=== PATIENT | female | born 1960 | race Caucasian/White ===

== ENCOUNTER 2019-06-06 12:43 | Emergency (ER) | payer BC ==
--- OUTSIDE RECORDS SUMMARY | 2019-06-06 12:46 | XMS REPORT ---
:1960 Author [facility] Address [address] [place] [address] Care Team Providers Name Role Phone Unavailable Unavailable Unavailable Payers Payer Name Policy Type Policy Number Effective Date Expiration Date Problems This patient has no known problems. Allergies, Adverse Reactions, Alerts Allergy Allergy Status Severity Reaction(s) Onset Inactive Treating Comments Name Type Date Date Clinician No Known DA Active U 2017-03 Allergies 00:00:0 0 Medications This patient has no known medications. Results Test Description Test Time Test Comments Text Results Atomic Results Result Comments B-TYPE NATRIURETIC PEPTIDE 2019-01-18 14:56:00 Test Item Value Reference Range Comments B-TYPE NATRIURETIC PEPTIDE (test code=BNP) 22.8 pg/mL 0-100 BASIC METABOLIC [id number] 14:55:00 Test Item Value Reference Range Comments SODIUM (test code=NA) 143 mmol/L 128-145 POTASSIUM (test code=K) 3.5 mmol/L 3.5-5.1 CHLORIDE (test code=CL) 106.0 mmol/L 98-107 CARBON DIOXIDE (test 29.9 mmol/L 22-29 code=CO2) ANION GAP (test code=GAP) 11 mmol/L 10-20 GLUCOSE (test code=GLU) 88 mg/dL 70-110 BLOOD UREA NITROGEN (test 9 mg/dL 7-22 code=BUN) GLOMERULAR FILTRATION RATE > 60 mL/min >=60 Estimated GFR by using (test code=GFR) Modified MDRD formula.Chronic kidney disease is defined as either kidney damageor GFR <60 mL/min/1.73 m2 for >3 months. CREATININE (test code=CREAT) 0.66 mg/dL 0.55-1.3 BUN/CREATININE RATIO (test 13.6 1020 code=BUN/CREA) CALCIUM (test code=CA) 8.8 mg/dL 8.0-10.5 [id number] 14:55:00 Test Item Value Reference Range Comments TROPONIN-I (test code=TROPI) 0.03 ng/mL 0.00-0.056 BASIC METABOLIC [id number] 14:48:00 Test Item Value Reference Range Comments SODIUM (test code=NA) 143 mmol/L 128-145 POTASSIUM (test code=K) 3.5 mmol/L 3.5-5.1 CHLORIDE (test code=CL) 106.0 mmol/L 98-107 CARBON DIOXIDE (test 29.9 mmol/L 22-29 code=CO2) ANION GAP (test code=GAP) 11 mmol/L 10-20 GLUCOSE (test code=GLU) 88 mg/dL 70-110 BLOOD UREA NITROGEN (test 9 mg/dL 7- code=BUN) GLOMERULAR FILTRATION RATE > 60 mL/min >=60 Estimated GFR by using (test code=GFR) Modified MDRD formula.Chronic kidney disease is defined as either kidney damageor GFR <60 mL/min/1.73 m2 for >3 months. CREATININE (test code=CREAT) 0.66 mg/dL 0.55-1.3 BUN/CREATININE RATIO (test 13.6 20 code=BUN/CREA) CALCIUM (test code=CA) 8.8 mg/dL 8.0-10.5 [id number] 14:48:00 Test Item Value Reference Range Comments TROPONIN-I (test code=TROPI) ng/mL 0-0.045 - XR CHEST 1 [id number] 14:48:00 FAX: Travis Wood [phone] [place]: [place] St: REG Name: THEO CARMONA FSED : 1960 Age/S: 58/F [address] Unit#: [id number] Loc: [facility] [address] Phys: Travis Wood MD [place], [place] [address] Acct: [id number] Dis Date: Status: REG ER PHONE #: Exam Date: 01/18/2019 3856 FAX #: Reason: Shortness of Breath EXAMS: CPT CODE : [id number] XR CHEST 1 V 19562 REASON FOR EXAM: Shortness of Breath EXAM ORDER DATE: 01/18/2019 2: 14 PM Ordering MStephanie: Travis Wood MD PROCEDURE: - XR CHEST 1 V COMPARISON: FINDINGS: Portable AP frontal view of the chest obtained at 2:33 PM shows clear lungs without evidence of consolidation. There is no evidence of effusion. The heart size is within normal limits. Pulmonary vasculatures are unremarkable. IMPRESSION: No active disease. at 5955 Reported and signed by: Artem Maldonado M.D. CC: Travis Wood MD Technologist: Isaías Fisher Trnscrd Date/Time/By: 01/18/2019 ( 0666) : By: AldoL OrigPrint D/T: S: 01/18/2019 (3298) PAGE 1 Signed ReportCBC W/O [id number] 14:42:00 Test Item Value Reference Range Comments WHITE BLOOD CELL (test code=WBC) 3.5 K/mm3 4.5-12.5 RED BLOOD CELL (test code=RBC) 4.17 mill/mm3 3.7-5.2 HEMOGLOBIN (test code=HGB) 11.5 gram/dL 11.5-15.5 HEMATOCRIT (test code=HCT) 37.2 % 36.0-46.0 MEAN CELL VOLUME (test code=MCV) 89.2 fL 80-98 MEAN CELL HGB (test code=MCH) 27.6 picogram 27.0-33.0 MEAN CELL HGB CONCETRATION (test code=MCHC) 30.9 gram/dL 33.0-36.0 RED CELL DISTRIBUTION WIDTH (test code=RDW) 15.1 % 11.6-16.2 RED CELL DISTRIBUTION WIDTH SD (test 48.9 fL 37.0-51.0 code=RDW-SD) PLATELET COUNT (test code=PLT) 129 K/mm3 150-450 MEAN PLATELET VOLUME (test code=MPV) 9.9 fL 6.7-11.0
[2019-06-06] MEDS ORDERED: IPRATROPIUM BROM 0.5MG/2.5ML ONE (13:22)
[2019-06-06] MEDS ORDERED: METHYLPREDNISOLONE 125 MG INJ ONE (13:22)
[2019-06-06] MEDS ORDERED: LEVALBUTEROL 1.25 MG/3 ML NEB ONE (13:22)
[2019-06-06 13:45] LABS: Absolute Lymphocytes (CBC) 1.5 K/uL (0.7-4.9); Basophils % 0.8 % (0-1.3); Hematocrit 37.5 % (36.0-45.0); Lymphocytes % 27.2 % (15.3-44.8); MPV 8.8 fL (7.6-11.3); RBC Red Blood Cell Count 4.38 M/uL (3.86-4.86)
--- NOTE | 2019-06-06 13:48 | RAD REPORT ---
EXAM DESCRIPTION: RAD - Chest Single View - 06/06/2019 1:32 pm CLINICAL HISTORY: Chest pain, progressive shortness of breath COMPARISON: October 2016 TECHNIQUE: AP portable chest image was obtained 1324 hours . FINDINGS: Lungs are clear. Slight increase in density right lung field superimposed on the posterior right ninth rib is believed to be summation artifact. Heart and vasculature are normal. No measurabl e pleural effusion and no pneumothorax. No acute bony abnormality seen. No acute aortic findings susp ected. IMPRESSION: No acute cardiopulmonary process. No suspicious interval change.
[2019-06-06 13:54] LABS: Protime INR 0.99
[2019-06-06] MEDS ORDERED: AZITHROMYCIN IV 500 MG in NA CHLORIDE 0.9% 250 ML IVPB ONE (14:00)
[2019-06-06 14:01] LABS: ALT/SGPT 29 U/L (12-78); AST/SGOT 24 U/L (15-37); Albumin 3.7 g/dL (3.4-5.0); Alkaline Phosphatase 138 U/L (45-117); BUN Blood Urea Nitrogen 13 mg/dL (7-18); Bicarbonate 28 mmol/L (21-32); Bilirubin Direct 0.1 mg/dL (0-0.2); Bilirubin Total 0.4 mg/dL (0.2-1.0); Blood Morphology Comment NOT SEEN (NOT SEEN); CKMB Creatine Kinase MB 1.6 ng/mL (0.3-3.6); Creatine Phosphokinase 61 U/L (26-192); Glucose Level 109 mg/dL (74-106); Lipase 107 U/L (73-393); Magnesium 2.1 mg/dL (1.8-2.4); NT PRO-BNP 42 pg/mL (<125); Platelet Estimate ADEQ; Potassium 4.6 mmol/L (3.5-5.1); Protein, Total 7.5 g/dL (6.4-8.2); Sodium Level 140 mmol/L (136-145); Troponin (Emerg Dept Use Only) < 0.02 ng/mL (0.0-0.045); Urine White Blood Cell Casts OK
[2019-06-06] MEDS ORDERED: NITROGLYCERIN 0.4 MG/TAB SL ONE (14:11)
--- NOTE | 2019-06-06 14:57 | ER ---
Nurse's Notes [facility] Name: Rissa Collazo Age: 58 yrs Sex: Female : 1960 Arrival Date: 06/06/2019 Time: 12:47 Bed 25 Private MD: Diagnosis: Chronic obstructive pulmonary disease with (acute) exacerbation Presentation: 06/06 12:48 Presenting complaint: Patient states: I have been having increasing SOB the last couple la1 weeks from my COPD but worse today. Transition of care: patient was not received from another setting of care. Onset of symptoms. Risk Assessment: Do you want to hurt yourself or someone else? Patient reports no desire to harm self or others. Initial Sepsis Screen: Does the patient meet any 2 criteria? No. Patient's initial sepsis screen is negative. Does the patient have a suspected source of infection? No. Patient's initial sepsis screen is negative. Care prior to arrival: None. 12:48 Method Of Arrival: Ambulatory la1 12:48 Acuity: HOLLI 3 la1 Triage Assessment: 15:00 Respiratory: Onset: The symptoms/episode began/occurred. ca1 15:00 General: Appears. Respiratory: ca1 Historical: - Allergies: 12:49 No Known Allergies; la1 - PMHx: 12:49 Asthma; andrade's esophogous; Hypertension; COPD; la1 - Immunization history:: Adult Immunizations up to date. - Social history:: Smoking status: Patient/guardian denies using tobacco, the patient reports quitting approximately 5 years ago. - Ebola Screening: : No symptoms or risks identified at this time. - Family history:: not pertinent. - Hospitalizations: : No recent hospitalization is reported. Screenin:05 Abuse screen: Denies threats or abuse. Denies injuries from another. Nutritional ca1 screening: No deficits noted. Tuberculosis screening: No symptoms or risk factors identified. Fall Risk IV access (20 points). Assessment: 13:05 General: Appears in no apparent distress. comfortable, Behavior is calm, cooperative, ca1 appropriate for age. Pain: Denies pain. Neuro: Level of Consciousness is awake, alert, obeys commands, Oriented to person, place, time, situation. Cardiovascular: Heart tones S1 S2 present Capillary refill < 3 seconds Patient's skin is warm and dry. Pulses are all present. Rhythm is sinus rhythm. Respiratory: Airway is patent Respiratory effort is even, unlabored, Respiratory pattern is regular, symmetrical, Breath sounds with wheezes bilaterally. Respiratory: Reports shortness of breath on exertion since a week ago cough that is non-productive, since a week ago. GI: Abdomen is round non-distended, Bowel sounds present X 4 quads. Abd is soft and non tender X 4 quads. : No deficits noted. No signs and/or symptoms were reported regarding the genitourinary system. EENT: No deficits noted. No signs and/or symptoms were reported regarding the EENT system. Derm: Skin is intact, is healthy with good turgor, Skin is pink, warm \T\ dry. Musculoskeletal: Circulation, motion, and sensation intact. Capillary refill < 3 seconds, Range of motion: intact in all extremities. 14:00 Reassessment: Patient appears in no apparent distress at this time. Patient and/or ca1 family updated on plan of care and expected duration. Pain level reassessed. Patient is alert, oriented x 3, equal unlabored respirations, skin warm/dry/pink. 15:00 Reassessment: Patient appears in no apparent distress at this time. Patient and/or ca1 family updated on plan of care and expected duration. Pain level reassessed. Patient is alert, oriented x 3, equal unlabored respirations, skin warm/dry/pink. 15:47 Reassessment: Patient appears in no apparent distress at this time. Patient is alert, ca1 oriented x 3, equal unlabored respirations, skin warm/dry/pink. Patient states feeling better. Patient states symptoms have improved. Respiratory: Breath sounds are clear bilaterally. Vital Signs: 12:49 BP 159 / 82; Pulse 92; Resp 18; Temp 97.7; Pulse Ox 97% on R/A; Weight 86.18 kg; Height la1 5 ft. 6 in. (167.64 cm); 14:00 BP 109 / 56; Pulse 80; Resp 20 S; Pulse Ox 96% on R/A; ca1 15:00 BP 140 / 86; Pulse 81; Resp 20 S; Pulse Ox 99% on R/A; ca1 15:40 BP 134 / 81; Pulse 75; Resp 20 S; Pulse Ox 94% on R/A; ca1 12:49 Body Mass Index 30.67 (86.18 kg, 167.64 cm) la1 ED Course: 12:47 Patient arrived in ED. mr 12:49 Triage completed. la1 12:49 Arm band placed on left wrist. la1 12:51 Carie Flores MD is Attending Physician. ma2 13:05 Patient has correct armband on for positive identification. Placed in gown. Bed in low ca1 position. Call light in reach. Side rails up X 1. locomotive observer on. Pulse ox on. NIBP on. Warm blanket given. Head of bed elevated. 13:17 Jayne Gallegos, JUNAID is Primary Nurse. ca1 13:34 No provider procedures requiring assistance completed. Inserted saline lock: 22 gauge ca1 in right antecubital area, using aseptic technique. Blood collected. 13:34 First set of blood cultures drawn by me. ca1 13:48 EKG done, by electronic test technician. reviewed by Carie Flores MD. tc 13:50 Second set of blood cultures drawn by lab staff. ca1 15:49 IV discontinued, intact, bleeding controlled, No redness/swelling at site. Pressure ca1 dressing applied. Administered Medications: 13:20 Drug: Xopenex 1.25 mg Route: Inhalation; ca1 13:20 Drug: AtroVENT Aerosol 0.5 mg Route: Inhalation; ca1 13:40 Drug: SOLU-Medrol 125 mg Route: IVP; Site: right antecubital; ca1 15:30 Follow up: Response: No adverse reaction; Marked relief of symptoms ca1 13:40 Drug: AtroVENT Aerosol 0.5 mg Route: Inhalation; ca1 14:00 Drug: AtroVENT Aerosol 0.5 mg Route: Inhalation; ca1 14:30 Drug: AZITHromycin 500 mg Route: IVPB; Infused Over: 1 hrs; Site: right antecubital; ca1 15:40 Follow up: Response: No adverse reaction; IV Status: Completed infusion ca1 15:46 Follow up: Response: No adverse reaction; IV Status: Completed infusion ca1 Outcome: 14:56 Discharge ordered by . ma2 15:49 Discharged to home ambulatory. ca1 15:49 Condition: stable 15:49 Discharge instructions given to patient, Instructed on discharge instructions, follow up and referral plans. medication usage, Demonstrated understanding of instructions, follow-up care, medications, Prescriptions given X 2. 15:49 Patient left the ED. ca1 Signatures: Ofe Ramos HeatherManda, carbon plant grinder EKG Ttc Josh Montilla RN RN la1 Carie Flores MD MD ma2 Jayne Gallegos RN RN ca1 Corrections: (The following items were deleted from the chart) 15:47 15:45 Reassessment: Patient appears in no apparent distress at this time. Patient ca1 and/or family updated on plan of care and expected duration. Pain level reassessed. Patient is alert, oriented x 3, equal unlabored respirations, skin warm/dry/pink. ca1 22:37 22:36 Respiratory: Onset: The symptoms/episode began/occurred ca1 ca1
--- NOTE | 2019-06-06 14:58 | EDPHYS ---
Physician Documentation [facility] Name: Rissa Collazo Age: 58 yrs Sex: Female : 1960 Arrival Date: 06/06/2019 Time: 12:47 Bed 25 Private MD: ED Physician Carie Flores HPI: 06/06 13:13 This 58 yrs old Female presents to ER via Ambulatory with complaints of ma2 Breathing Difficulty. 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 - Social history:: Smoking status: Patient/guardian denies using tobacco, the patient reports quitting approximately 5 years ago. - Ebola Screening: : No symptoms or risks identified at this time. - Family history:: not pertinent. - Hospitalizations: : No recent hospitalization is reported. ROS: 14:55 Constitutional: Negative for fever, chills, and weight loss. ma2 14:55 All other systems are negative. Exam: 14:55 Constitutional: This is a well developed, well nourished patient who is awake, alert, ma2 and in no acute distress. Chest/axilla: Normal chest wall appearance and motion. Nontender with no deformity. No lesions are appreciated. Cardiovascular: Regular rate and rhythm with a normal S1 and S2. No gallops, murmurs, or rubs. Normal PMI, no JVD. No pulse deficits. Abdomen/GI: Soft, non-tender, with normal bowel sounds. No distension or tympany. No guarding or rebound. No evidence of tenderness throughout. Back: No spinal tenderness. No costovertebral tenderness. Full range of motion. 14:55 Respiratory: mild respiratory distress is noted, Respirations: normal, Breath sounds: wheezing: Respiratory rate: 20 Vital Signs: 12:49 BP 159 / 82; Pulse 92; Resp 18; Temp 97.7; Pulse Ox 97% on R/A; Weight 86.18 kg; Height la1 5 ft. 6 in. (167.64 cm); 14:00 BP 109 / 56; Pulse 80; Resp 20 S; Pulse Ox 96% on R/A; ca1 15:00 BP 140 / 86; Pulse 81; Resp 20 S; Pulse Ox 99% on R/A; ca1 15:40 BP 134 / 81; Pulse 75; Resp 20 S; Pulse Ox 94% on R/A; ca1 12:49 Body Mass Index 30.67 (86.18 kg, 167.64 cm) la1 MDM: 12:52 Patient medically screened. ma2 14:55 Differential diagnosis: Anxiety Reaction asthma, Bronchitis reactive airway disease. ma2 Antibiotic administration: The patient is discharged and will get outpatient antibiotics. Data reviewed: vital signs, nurses notes, diagnostic data from outside facility. Counseling: I had a detailed discussion with the patient and/or guardian regarding: the historical points, exam findings, and any diagnostic results supporting the discharge/admit diagnosis, the presence of at least one elevated blood pressure reading (>120/80) during this emergency department visit, the need for outpatient follow up. Medical screen evaluation completed. EMTALA emergency medical condition absent. 06/06 13:15 Order name: Blood Culture Adult (2) 06/06 13:15 Order name: BMP; Complete Time: 14: al2 06/06 13:15 Order name: CBC with Diff; Complete Time: 14:25 06/06 13:15 Order name: Ckmb; Complete Time: 14:25 06/06 13:15 Order name: CPK; Complete Time: 14:25 06/06 13:15 Order name: D-Dimer; Complete Time: 14:25 06/06 13:15 Order name: Hepatic Function; Complete Time: 14:25 al06/06 13:15 Order name: Lipase; Complete Time: 14:25 al2 06/06 13:15 Order name: Magnesium; Complete Time: 14:25 al2 06/06 13:15 Order name: NT PRO-BNP; Complete Time: 14:25 al2 06/06 13:15 Order name: PT-INR; Complete Time: 14:25 al2 06/06 13:15 Order name: Ptt, Activated; Complete Time: 14:25 al06/06 13:15 Order name: Troponin (emerg Dept Use Only); Complete Time: 14:25 al2 06/06 14:11 Order name: CBC Smear Scan; Complete Time: 14:25 EDMS 06/06 13:15 Order name: XRAY CXR (1 view) 06/06 13:15 Order name: EKG; Complete Time: 13:17 al06/06 13:15 Order name: Cardiac monitoring; Complete Time: 14:37 [facility] 06/06 13:15 Order name: EKG - Nurse/Tech; Complete Time: 14:37 06/06 13:15 Order name: IV Saline Lock; Complete Time: 14:37 [facility] 06/06 13:15 Order name: Labs collected and sent; Complete Time: 14:37 [facility] 06/06 13:15 Order name: O2 Per Protocol; Complete Time: 14:37 06/06 13:15 Order name: O2 Sat Monitoring; Complete Time: 14:37 06/06 15:41 Order name: RAD EDMS Administered Medications: 13:20 Drug: Xopenex 1.25 mg Route: Inhalation; ca1 13:20 Drug: AtroVENT Aerosol 0.5 mg Route: Inhalation; ca1 13:40 Drug: SOLU-Medrol 125 mg Route: IVP; Site: right antecubital; ca1 15:30 Follow up: Response: No adverse reaction; Marked relief of symptoms ca1 13:40 Drug: AtroVENT Aerosol 0.5 mg Route: Inhalation; ca1 14:00 Drug: AtroVENT Aerosol 0.5 mg Route: Inhalation; ca1 14:30 Drug: AZITHromycin 500 mg Route: IVPB; Infused Over: 1 hrs; Site: right antecubital; ca1 15:40 Follow up: Response: No adverse reaction; IV Status: Completed infusion ca1 15:46 Follow up: Response: No adverse reaction; IV Status: Completed infusion ca1 Disposition: 06/06/19 14:56 Discharged to Home. Impression: Chronic obstructive pulmonary disease with (acute) exacerbation. - Condition is Stable. - Discharge Instructions: Chronic Obstructive Pulmonary Disease. - Prescriptions for Zithromax Z- Jaleel 250 mg Oral Tablet - take 1 tablet by ORAL route as directed for 5 days Day 1 - take two (2) tablets one time. Day 2, 3, 4 , 5 take one (1) tablet once daily.; 6 tablet. Medrol (Jaleel) 4 mg Oral Tablets, Dose Pack - take 1 tablet by ORAL route as directed - follow package instructions; 1 packet. - Medication Reconciliation Form, Thank You Letter, Antibiotic Education, Prescription Opioid Use form. - Follow up: Private Physician; When: Tomorrow; Reason: If symptoms return, Continuance of care. Signatures: Dispatcher [employer] Josh Sanchez RN RN la1 Carie Florse MD MD ma2 Jayne Gallegos RN RN ca1 Corrections: (The following items were deleted from the chart) 15:49 14:56 06/06/2019 14:56 Discharged to Home. Impression: Chronic obstructive pulmonary ca1 disease with (acute) exacerbation. Condition is Stable. Forms are Medication Reconciliation Form, Thank You Letter, Antibiotic Education, Prescription Opioid Use. Follow up: Private Physician; When: Tomorrow; Reason: If symptoms return, Continuance of care. ma2
[2019-06-06 15:55] VITALS: TEMP 97.7
[2019-06-06 16:00] VITALS: BP 134/81; O2SAT 94
--- NOTE | 2019-06-06 18:31 | EKG ---
Test Date: 2019-06-06 Test Time: 13:28:51 Structural Design Engineer: GABE MEASUREMENT RESULTS: Intervals: Rate: 78 IA: 160 QRSD: 90 QT: 388 QTc: 442 [place]: P: 56 IA: 160 QRS: 92 T: 61 INTERPRETIVE STATEMENTS: Normal sinus rhythm Rightward axis Borderline ECG Compared to ECG 11/03/2016 19:16:10 Right-axis deviation now present Electronically Signed On 06-06-19 18:29:24 CDT by Raymond Worthington
== END 2019-06-06 15:49 | disposition home or self-care (01) ==
LOC: ER 12:43
DX: J44.1 Chronic obstructive pulmonary disease with (acute) exacerbation (principal)
CPT/HCPCS: 93005; 87040 ×2; 85025; 80048; 36415; 83735; 82550; 85610; 85379; 80076; 85730; 84484; 82553; 83690; 83880; 71045; J0456; J2930; 96365; 96375; 99285

== ENCOUNTER 2019-11-09 10:41 | Emergency (ER) | payer BC ==
--- OUTSIDE RECORDS SUMMARY | 2019-11-09 10:44 | XMS REPORT ---
:1960 [facility] Address [address] [place] [address] Care Team Providers Name Role Phone Unavailable [...] (test code=BNP) 22.8 pg/mL 0-100 BASIC METABOLIC [id number] 14:55:00 Test Item Value Reference Range Comments [...] code=BUN/CREA) CALCIUM (test code=CA) 8.8 mg/dL 8.0-10.5 [id number] 14:55:00 Test Item Value Reference Range Comments TROPONIN-I (test code=TROPI) 0.03 ng/mL 0.00-0.056 BASIC METABOLIC [id number] 14:48:00 Test Item Value Reference Range Comments [...] code=BUN/CREA) CALCIUM (test code=CA) 8.8 mg/dL 8.0-10.5 [id number] 14:48:00 Test Item Value Reference Range Comments TROPONIN-I (test code=TROPI) ng/mL 0-0.045 - XR CHEST 1 [id number] 14:48:00 FAX: Travis Wood [place]: [place] St: REG Name: THEO CARMONA FSED : 1960 Age/S: 58/F [address] Unit[address] [id number] Loc: [facility] [address] Phys: Travis Wood MD [place], [place] [address] Acct: [id number] Dis Date: Status: REG ER PHONE #: Exam Date: 01/18/2019 9486 FAX #: Reason: Shortness of Breath EXAMS: CPT CODE : [id number] XR CHEST 1 V 01587 REASON FOR EXAM: Shortness of Breath EXAM [...] are unremarkable. IMPRESSION: No active disease. at 0986 Reported and signed by: Artem Maldonado M.D. CC: Travis Wood MD Technologist: Isaías Fisher Trnscrd Date/Time/By: 01/18/2019 ( 7821) : By: AldoL OrigPrint D/T: S: 01/18/2019 (2140) PAGE 1 Signed ReportCBC W/O [id number] 14:42:00 Test Item Value Reference Range Comments [...]
[2019-11-09] MEDS ORDERED: predniSONE 20 MG TAB ONE (11:15)
[2019-11-09] MEDS ORDERED: LEVALBUTEROL 1.25 MG/3 ML NEB ONE (11:15)
--- NOTE | 2019-11-09 12:24 | ER ---
Nurse's Notes [facility] Name: Rissa Collazo Age: 59 yrs Sex: Female : 1960 Arrival Date: 11/09/2019 Time: 10:42 Bed 8 Private MD: Diagnosis: Unspecified asthma with (acute) exacerbation Presentation: 11/09 10:57 Presenting complaint: Patient states: hx of asthma/copd, satrted feeling more SOB over iw past couple days, also has dry cough, has been taking albuterol at home. Transition of care: patient was not received from another setting of care. Onset of symptoms was November 07, 2019. Risk Assessment: Do you want to hurt yourself or someone else? Patient reports no desire to harm self or others. Initial Sepsis Screen: Does the patient meet any 2 criteria? No. Patient's initial sepsis screen is negative. Does the patient have a suspected source of infection? No. Patient's initial sepsis screen is negative. Care prior to arrival: None. 10:57 Method Of Arrival: Ambulatory iw 10:57 Acuity: HOLLI 3 iw Historical: - Allergies: 10:59 No Known Allergies; iw - Home Meds: 11:20 Byetta 5 mcg/dose (250 mcg/mL) 1.2 mL subcutaneous pnij 2 times per day [Active]; iw losartan 100 mg oral tab 1 tab once daily [Active]; bupropion HCl 150 mg Oral TbER 1 tab once daily [Active]; duloxetine 60 mg oral cpDR 2 caps once daily [Active]; pantoprazole 40 mg oral TbEC 1 tab once daily [Active]; montelukast 10 mg oral tab 1 tab once daily [Active]; Claritin 10 mg Oral tab 1 tab once daily [Active]; lorazepam 1 mg Oral tab every 6 hours [Active]; Ambien 10 mg Oral tab 1 tab once daily [Active]; ProAir HFA 90 mcg/actuation inhalation HFAA [Active]; trelegy inhaler [Active]; - 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 - Coronavirus screen:: The patient has NOT traveled to [place] in the past 14 days. Proceed with normal triage process as indicated. - Social history:: Smoking status: Patient/guardian denies using tobacco, the patient reports quitting approximately 4 years ago. - Ebola Screening: : Patient negative for fever greater than or equal to 101.5 degrees Fahrenheit, and additional compatible Ebola Virus Disease symptoms Patient denies exposure to infectious person Patient denies travel to an Ebola-affected area in the 21 days before illness onset No symptoms or risks identified at this time. Screenin:51 Abuse screen: Denies threats or abuse. Denies injuries from another. Nutritional ph screening: No deficits noted. Tuberculosis screening: No symptoms or risk factors identified. Fall Risk None identified. Assessment: 11:50 General: Appears in no apparent distress. comfortable, well groomed, Behavior is calm, ph cooperative, appropriate for age, Denies fever. Pain: Denies pain. Neuro: Level of Consciousness is awake, alert, obeys commands, Oriented to person, place, time, situation. Cardiovascular: Capillary refill < 3 seconds in bilateral fingers Patient's skin is warm and dry. Respiratory: Reports shortness of breath cough that is dry, Airway is patent Respiratory effort is even, unlabored, Respiratory pattern is regular, symmetrical, Breath sounds with wheezes bilaterally. Denies pain with respiration, pain with cough. GI: No signs and/or symptoms were reported involving the gastrointestinal system. Derm: Skin is intact, is healthy with good turgor, Skin is pink, warm \T\ dry. Musculoskeletal: Circulation, motion, and sensation intact. Range of motion: intact in all extremities. 12:08 Reassessment: Patient appears in no apparent distress at this time. Patient and/or rb1 family updated on plan of care and expected duration. Pain level reassessed. Patient is alert, oriented x 3, equal unlabored respirations, skin warm/dry/pink. Patient states symptoms have improved. Vital Signs: 10:59 BP 153 / 102; Pulse 88; Resp 20 S; Temp 97.0; Pulse Ox 98% on R/A; Weight 90.72 kg; iw Height 5 ft. 6 in. (167.64 cm); Pain 0/10; 11:59 BP 129 / 60; Pulse 83; Resp 20; Pulse Ox 96% on R/A; rb1 12:51 BP 117 / 71; Pulse 87; Resp 18; Temp 97.4; Pulse Ox 98% on R/A; ph 10:59 Body Mass Index 32.28 (90.72 kg, 167.64 cm) ED Course: 10:42 Patient arrived in ED. as 10:50 Mike Sequeira PA is PHCP. [facility] 10:50 Carmine Thomas MD is Attending Physician. [facility] 10:58 Triage completed. iw 10:59 Arm band placed on. iw 11:09 Magdalena Cassidy, RN is Primary Nurse. ph 11:51 Patient has correct armband on for positive identification. Bed in low position. Call ph light in reach. Side rails up X 1. Pulse ox on. NIBP on. 12:51 No provider procedures requiring assistance completed. Patient did not have IV access ph during this emergency room visit. Administered Medications: 11:15 Drug: predniSONE 60 mg Route: PO; ph 12:53 Follow up: Response: No adverse reaction ph 11:15 Drug: Xopenex (3) 1.25 mg Route: Inhalation; ph 12:52 Follow up: Response: No adverse reaction ph Outcome: 12:23 Discharge ordered by MD. m 12:51 Discharged to home ambulatory. ph 12:51 Condition: improved 12:51 Discharge instructions given to patient, Instructed on discharge instructions, follow up and referral plans. medication usage, Demonstrated understanding of instructions, follow-up care, Prescriptions given X 2. 12:53 Patient left the ED. ph Signatures: Mike Sequeira PA PA jmm Martinez, Amelia as Marija Gonzalez, JUNAID QUIROGA Magdalena Cassidy RN RN Zahra Pineda, RN RN rb1 Corrections: (The following items were deleted from the chart) 11:00 10:57 Acuity: HOLLI 4 iw
--- NOTE | 2019-11-09 12:25 | EDPHYS ---
Physician Documentation [facility] Name: Rissa Collazo Age: 59 yrs Sex: Female : 1960 Arrival Date: 11/09/2019 Time: 10:42 Bed 8 Private MD: ED Physician Carmine Thomas HPI: 11/09 11:08 This 59 yrs old Female presents to ER via Ambulatory with complaints of jmm Asthma Exacerbation. 11:08 The patient presents to the emergency department with wheezing, Current therapy: jmm albuterol inhaler. Onset: The symptoms/episode began/occurred gradually, 2 day(s) ago. Modifying factors: The symptoms are alleviated by inhaler, the symptoms are aggravated by. Associated signs and symptoms: Pertinent negatives: chest pain, fever, vomiting. This is a 59 year old female with a history of asthma that presents to the ED with complaints of cough, wheezing, shortness of breath worsening over the past 2 days. Patient states she did not take her prescribed inhaled steroids this past month which may have exacerbated her SOB. Patient has not had an exacerbations in the past year and has never been intubated. . Historical: - Allergies: 10:59 No Known Allergies; iw - Home Meds: 11:20 Byetta 5 mcg/dose (250 mcg/mL) 1.2 mL subcutaneous pnij 2 times per day [Active]; iw losartan 100 mg oral tab 1 tab once daily [Active]; bupropion HCl 150 mg Oral TbER 1 tab once daily [Active]; duloxetine 60 mg oral cpDR 2 caps once daily [Active]; pantoprazole 40 mg oral TbEC 1 tab once daily [Active]; montelukast 10 mg oral tab 1 tab once daily [Active]; Claritin 10 mg Oral tab 1 tab once daily [Active]; lorazepam 1 mg Oral tab every 6 hours [Active]; Ambien 10 mg Oral tab 1 tab once daily [Active]; ProAir HFA 90 mcg/actuation inhalation HFAA [Active]; trelegy inhaler [Active]; - 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 - Coronavirus screen:: The patient has NOT traveled to [place] in the past 14 days. Proceed with normal triage process as indicated. - Social history:: Smoking status: Patient/guardian denies using tobacco, the patient reports quitting approximately 4 years ago. - Ebola Screening: : Patient negative for fever greater than or equal to 101.5 degrees Fahrenheit, and additional compatible Ebola Virus Disease symptoms Patient denies exposure to infectious person Patient denies travel to an Ebola-affected area in the 21 days before illness onset No symptoms or risks identified at this time. ROS: 11:08 Constitutional: Negative for fever, chills, and weight loss, Cardiovascular: Negative jmm for chest pain, palpitations, and edema. 11:08 Abdomen/GI: Negative for abdominal pain, nausea, vomiting, diarrhea, and constipation. 11:08 Respiratory: Positive for cough, wheezing. 11:08 All other systems are negative. Exam: 11:08 Constitutional: This is a well developed, well nourished patient who is awake, alert, jmm and in no acute distress. Head/Face: atraumatic. Eyes: EOMI, no conjunctival erythema appreciated ENT: Moist Mucus Membranes Neck: Trachea midline, Supple Chest/axilla: Normal chest wall appearance and motion. Cardiovascular: Regular rate and rhythm. No edema appreciated 11:08 Abdomen/GI: Non distended, soft Back: Normal ROM Skin: General appearance color normal MS/ Extremity: Moves all extremities, no obvious deformities appreciated, no edema noted to the lower extremities Neuro: Awake and alert, normal gait Psych: Behavior is normal, Mood is normal, Patient is cooperative and pleasant 11:08 Respiratory: the patient does not display signs of respiratory distress, Respirations: normal, Breath sounds: wheezing: that is moderate, is heard diffusely. Vital Signs: 10:59 BP 153 / 102; Pulse 88; Resp 20 S; Temp 97.0; Pulse Ox 98% on R/A; Weight 90.72 kg; iw Height 5 ft. 6 in. (167.64 cm); Pain 0/10; 11:59 BP 129 / 60; Pulse 83; Resp 20; Pulse Ox 96% on R/A; rb1 12:51 BP 117 / 71; Pulse 87; Resp 18; Temp 97.4; Pulse Ox 98% on R/A; ph 10:59 Body Mass Index 32.28 (90.72 kg, 167.64 cm) iw MDM: 10:54 Patient medically screened. [facility] 12:20 Data reviewed: vital signs, nurses notes. [facility] 12:21 Counseling: I had a detailed discussion with the patient and/or guardian regarding: the [facility] historical points, exam findings, and any diagnostic results supporting the discharge/admit diagnosis, the need for outpatient follow up, to return to the emergency department if symptoms worsen or persist or if there are any questions or concerns that arise at home. ED course: Improved breath sounds on reexamination. Slight wheezing appreciated. No signs of resp distress appreciated. Patient advised to follow up with pcp and otherwise given strict return precautions. Patient understood and agrees with the plan of care. . Administered Medications: 11:15 Drug: predniSONE 60 mg Route: PO; ph 12:53 Follow up: Response: No adverse reaction ph 11:15 Drug: Xopenex (3) 1.25 mg Route: Inhalation; ph 12:52 Follow up: Response: No adverse reaction ph Disposition: 14:33 Co-signature as Attending Physician, Carmine Thomas MD I agree with the assessment and kdr plan of care. Disposition: 11/09/19 12:23 Discharged to Home. Impression: Unspecified asthma with (acute) exacerbation. - Condition is Stable. - Discharge Instructions: Asthma, Adult. - Prescriptions for Prednisone 20 mg Oral Tablet - take 3 tablet by ORAL route once daily for 5 days; 15 tablet. Albuterol Sulfate 90 mcg/actuation - inhale 1-2 puff by INHALATION route every 4-6 hours; 1 Inhaler. - Medication Reconciliation Form, Thank You Letter, Antibiotic Education, Prescription Opioid Use form. - Follow up: Private Physician; When: 2 - 3 days; Reason: Recheck today's complaints, Continuance of care, Re-evaluation by your physician. Signatures: Carmine Thomas MD MD kdr Mickail, Joel, PA PA [facility] Marija Gonzalez, JUNAID RN iw Magdalena Cassdiy RN RN ph Corrections: (The following items were deleted from the chart) 12:53 12:23 11/09/2019 12:23 Discharged to Home. Impression: Unspecified asthma with (acute) ph exacerbation. Condition is Stable. Forms are Medication Reconciliation Form, Thank You Letter, Antibiotic Education, Prescription Opioid Use. Follow up: Private Physician; When: 2 - 3 days; Reason: Recheck today's complaints, Continuance of care, Re-evaluation by your physician. david
[2019-11-10 07:50] VITALS: BP 117/71; TEMP 97.4; O2SAT 98
== END 2019-11-09 12:53 | disposition home or self-care (01) ==
LOC: ER 10:41
DX: J45.901 Unspecified asthma with (acute) exacerbation (principal); I10 Essential (primary) hypertension
CPT/HCPCS: 99284; J7512

== ENCOUNTER 2021-02-15 11:10 | Emergency (ER) | payer BC ==
--- OUTSIDE RECORDS SUMMARY | 2021-02-15 11:14 | XMS REPORT | Continuity of Care Document ---
:1960 Author Organization [facility] t Address [address] [place] [address] Care Team Providers Name Role Phone Myra Boyd MD Primary Care Physician [phone] Lela Attending Clinician Joo Flores DO Attending Clinician Christie APODACA Attending Clinician Shana Dean CMA Attending Clinician Unavailable Payers Payer Name Policy Type Policy Number Effective Date Expiration Date S ource Problems Condition Condition Condition Status Onset Resolution Last Treating Co mments Source Name Details Category Date Date Treatment Clinician Date Anxiety Anxiety Disease [facility] 00 [place] Essential Essential Disease Active [facility] hypertensi hypertensi 12 Dee kes - on on 00:00: Medical 00 Center Other Other Disease Active [facility] insomnia insomnia 05-08 [facility] 00 [place] COPD COPD Disease Active 2018- [facility] ([facility]ronic ([facility] - obstructiv obstructiv 00:00: Me dical e e 00 Center pulmonary pulmonary disease) disease) Osteoarthr Osteoarthr Disease Active [facility] itis itis 8 [facility] - 00:[facility]: Medical 00 [place] Impaired Impaired Disease Active 2018-0 [facility] fasting fasting 8 [facility] - glucose glucose 00:00: Medical 00 [place] Iron Iron Disease Active [facility] deficiency deficiency 05-08 [facility] - anemia anemia 00:00: Medical [address] [place] [address] GERD GERD Disease Active [facility] without without 05-08 [facility] - esophagiti esophagiti 00:00: Me dical s s 00 [place] Hypertensi Hypertensi Disease Active [facility] on on [facility] Allergies, Adverse Reactions, Alerts Allergy Allergy Status Severity Reaction(s) Onset Inactive Treating Comm ents Source Name Type Date Date Clinician No Known DA Active [facility] Allergie 03-30 Clear s 00:00: Rios [address] [facility] Family History Family Member Diagnosis Comments Start Date Stop Date Source Natural father Hypertension [facility] Natural father Stroke [facility] Maternal grandfather Diabetes [facility] Maternal grandfather Hypertension [facility] Maternal grandmother Diabetes [facility] Maternal grandmother Hypertension [facility] Natural mother Hypertension [facility] Social History Social Habit Start Date Stop Date Quantity Comments Source History of tobacco Current smoker [facility] use [facility] History SDOH [facility] - Alcohol Std Drinks [facility] History SDOH [facility] - Alcohol Binge Medical [facility]anna ter Sex Assigned [facility] Cigarettes smoked 2020-02-07 2020-02-07 [facility] - current (pack per 00:00:00 00:00:00 [facility] Center day) - Reported Tobacco use and 2020-02-07 2020-02-07 Never used [facility] - exposure 00:00:00 00:00:00 [facility] Alcohol intake 2020-02-07 2020-02-07 Current [facility] - 00:00:00 00:00:00 non-drinker of Medical Ce nter alcohol (finding) History SDOH 2019-02-17 2019-02-17 1 [facility] - Alcohol Frequency 00:00:00 00:00:00 [facility] Smoking Status Start Date Stop Date Source Former smoker 2020-02-07 00:00:00 2020-02-07 00:00:00 [facility] Medications Ordered Filled Start Stop Current Ordering Indication Dosage Frequency Signature Comments Components Source Medication Medication Date Date Medication? Clinician (SIG) Name Name fluticasone 0 Yes 1{puff} Inhale [address] [facility] [address] propion-young 5-13 puff by [facility] - meterol 15:27: mouth via Medic al (ADVAIR) 19 inhaler Center 250-50 every 12 mcg/dose (twelve) diskus hours. inhaler LORazepam Yes 1mg Take [address] [facility] [address] (ATIVAN) 1 5-13 by mouth [facility] - MG tablet 15:27: every 6 Medic al 19 (six) Center hours as needed for Anxiety. benzonatate 0 Yes Chronic 100mg Take [address] [facility] (TESSALON) 5-13 obstructive capsule [facility] - 100 MG 00:00: pulmonary (100 mg Med ical capsule 00 disease, total) by Vanna ter unspecified mouth 3 COPD type (three) ([facility]) times daily as needed FOR COUGH. albuterol 0 Yes One vial [facility] (PROVENTIL) 5-13 qid prn [facility] - 2.5 mg /3 00:00: sob. Medical mL (0.083 00 Center %) nebulizer solution PROAIR HFA 0 Yes Inhale [address] [facility] [facility] 90 5-13 puff every [facility] - mcg/actuati 00:00: 4-6 hours M edical on inhaler 00 as needed Cent er for wheezing. miscellaneo 2019-[address] medical 4-05 NEBULIZER Luke [facility] - supply Misc 00:00: DX ASTHMA. Medical 00 [place] buPROPion 2018-09 Yes Anxiety 150mg QD Take [address] (WELLBUTRIN 2-09 tablet [facility] - XL) 150 MG 00:00: (150 mg Medi anthony 24 hr 00 total) by Center tablet mouth daily. BYSTOLIC 5 2018-09 Yes Essential Two po in [facility] mg tablet 2-09 hypertensio am and L ukes - 00:00: n One po Medical 00 qpm. [place] loratadine 2018-09 Yes 10mg QD Take 1 [facility] (CLARITIN) 2-09 tablet (10 Jean es - 10 mg 00:00: mg total) Medical tablet 00 by mouth Center daily. zolpidem 2018-09 Yes Other 10mg QD Take [address] (AMBIEN) 10 2-09 insomnia tablet (10 [facility] - mg tablet 00:00: mg total) Med ical 00 by mouth Center nightly. Max Daily Amount: 10 mg fluticasone 2018-09 Yes Chronic 1{puff} QD Inhale [address] -umeclidin- 11-05 obstructive puff by [facility] - vilanter 00:00: pulmonary mouth via Medical (TRELEGY 00 disease, inhaler Cent er ELLIPTA) unspecified daily. 100-62.5-25 COPD type mcg DsDv (HCC) levalbutero 2018-09- No Chronic 1.25mg Take [address] l (XOPENEX) 11-05 obstructive (1.25 mg [facility] - 1.25 mg/3 00:00: 23:59 pulmonary total) by Medical mL 00 :00 disease, nebulizati Cente r nebulizer unspecified on every 4 solution COPD type (four) ([facility]) hours as needed for Wheezing # 100 vials. losartan 2018-09- No Essential 100mg QD Take [address] (COZAAR) 11-05 hypertensio tablet L ukes - 100 MG 00:00: 23:59 n (100 mg Medical tablet 00 :00 total) by Center mouth daily Stop the 50mg. PROAIR Yes 2{puff} Take [address] RESPICLICK 9-11 puffs by [facility] - 90 00:00: mouth Medical mcg/actuati 00 every 4 Cente r on AePB (four) hours as needed. pantoprazol Yes 40mg QD Take [address] e 4-22 by mouth [facility] - (PROTONIX) 00:00: daily. Medic al 40 MG 00 Center tablet montelukast Yes 10mg QD Take [address] (SINGULAIR) 4-05 by mouth Luke s - 10 mg 00:00: daily. Medical tablet 00 Center DULoxetine Yes 120mg QD Take [address] (CYMBALTA) 4-02 mg by [facility] - 60 MG 00:00: mouth Medical capsule 00 every Center morning. Procedures This patient has no known procedures. Plan of Care Planned Activity Planned Date Details Comments Source Future Scheduled 2022-09-[address] [facility] - Test 00:00:00 (procedure) [code = [facility] 44753773] Future Scheduled 2020-05-28 INFLUENZA VACCINE (#1) [facility] - Test 00:00:00 [code = INFLUENZA Medical Ce nter VACCINE (#1)] Future Scheduled 2019-08-[address] [facility] - Test 00:00:[facility] breast (procedure) [code = 784359690] Future Scheduled [address] [facility] - Test 00:00:00 [facility] cervix (procedure) [code = 373166316] Future Scheduled [address] [facility] - Test 00:00:00 0-64 YRS (1 of 1 - Medical C enter PPSV23) [code = PNEUMOCOCCAL VACCINE 0-64 YRS (1 of 1 - PPSV23)] Future Scheduled [address] [facility] - Test 00:00:00 malignant neoplasm of [facility] colon (procedure) [code = 508232341] Encounters Start End Encounter Admission Attending Care Care Encounter Source Date/Time Date/Time Type Type Clinicians Facility Department ID 2021-01-23 2021-01-23 [facility] [id number] 00:00:00 00:00:00 [facility] [id number] CLINICS [id number] 2020-12-04 2020-12-04 [facility] [id number] 00:00:00 [facility]00[id number] [facility]oo [facility] [id number] PAVILLION [id number] 2020-11-19 2020-11-19 Office Christie [facility] [id number] 14:43:49 15:13:49 Visit Jack PRIMARY [id number] CARE [id number] PAVILLION [id number] Results Test Description Test Time Test Comments Results Result Comments Source BASIC METABOLIC PANEL 2020-02-20 07:47:00 Test Item Value Reference Range Interpretation Comme nts SODIUM (test code = NA) 137 mmol/L 134-147 N POTASSIUM (test code = K) 4.0 mmol/L 3.4-5.0 N CHLORIDE (test code = CL) 103 mmol/L 100-108 N CARBON DIOXIDE (test code = CO2) 28 mmol/L 21-32 N ANION GAP (test code = GAP) 6.0 GAP calc 4.0-15.0 N GLUCOSE (test code = GLU) 126 MG/DL 70-110 H BLOOD UREA NITROGEN (test code = BUN) 18 MG/DL 7-18 N GLOMERULAR FILTRATION RATE (test code = GFR) >=60 max estimate estG FR >60 CREATININE (test code = CREAT) 0.8 MG/DL 0.6-1.0 N CALCIUM (test code = CA) 8.7 MG/DL 8.5-10.1 N CBC W/AUTO [id number] 07:31:00 Test Item Value Reference Range Interpretation Comments WHITE BLOOD CELL (test code = 5.3 K/mm3 3.5-11.0 N WBC) RED BLOOD CELL (test code = RBC) 4.44 M/mm3 4.70-6.10 L HEMOGLOBIN (test code = HGB) 12.2 G/DL 10.4-14.9 N HEMATOCRIT (test code = HCT) 40.1 % 31.5-44.1 N MEAN CELL VOLUME (test code = 90.3 Fl 84.5-98.6 N MCV) MEAN CELL HGB (test code = MCH) 27.5 pg 27.0-34.2 N MEAN CELL HGB CONCETRATION (test 30.4 G/DL 31.5-34.0 L code = MCHC) RED CELL DISTRIBUTION WIDTH (test 16.4 SD 11.5-14.5 H code = RDW) PLATELET COUNT (test code = PLT) 230.0 K/mm3 150-450 N MEAN PLATELET VOLUME (test code = 10.30 fL 7.0-10.5 N MPV) NEUTROPHIL % (test code = NT%) 72.2 % 40-76 N LYMPHOCYTE % (test code = LY%) 21.1 % 20.5-51.1 N MONOCYTE % (test code = MO%) 6.3 % 1.7-9.3 N EOSINOPHIL % (test code = EO%) 0.0 % 0.0-6.0 N BASOPHIL % (test code = BA%) 0.4 % 0.0-2.0 N NEUTROPHIL # (test code = NT#) 3.81 K/mm3 1.8-7.6 N LYMPHOCYTE # (test code = LY#) 1.1 K/mm3 0.6-3.2 N MONOCYTE # (test code = MO#) 0.3 K/mm3 0.3-1.1 N EOSINOPHIL # (test code = EO#) 0.0 K/mm3 0.0-0.4 N BASOPHIL # (test code = BA#) 0.0 K/mm3 0.0-0.1 N MANUAL DIFF REQUIRED (test code = NO DIFF/SCN CRITERIA MDIFF) BASIC METABOLIC [id number] 05:23:00 Test Item Value Reference Range Interpretation Comments SODIUM (test code = NA) 138 mmol/L 134-147 N POTASSIUM (test code = 4.1 mmol/L 3.4-5.0 N K) CHLORIDE (test code = 102 mmol/L 100-108 N CL) CARBON DIOXIDE (test 31 mmol/L 21-32 N code = CO2) ANION GAP (test code = 5.0 GAP calc 4.0-15.0 N GAP) GLUCOSE (test code = 131 MG/DL 70-110 H GLU) BLOOD UREA NITROGEN 16 MG/DL 7-18 N (test code = BUN) GLOMERULAR FILTRATION >=60 max estimate >60 RATE (test code = GFR) estGFR CREATININE (test code = 0.8 MG/DL 0.6-1.0 N CREAT) CALCIUM (test code = CA) 8.5 MG/DL 8.5-10.1 N CBC W/AUTO [id number] 05:20:00 Test Item Value Reference Range Interpretation Comments WHITE BLOOD CELL (test code = 5.9 K/mm3 3.5-11.0 N WBC) RED BLOOD CELL (test code = RBC) 4.04 M/mm3 4.70-6.10 L HEMOGLOBIN (test code = HGB) 10.9 G/DL 10.4-14.9 N HEMATOCRIT (test code = HCT) 36.9 % 31.5-44.1 N MEAN CELL VOLUME (test code = 91.3 Fl 84.5-98.6 N MCV) MEAN CELL HGB (test code = MCH) 27.0 pg 27.0-34.2 N MEAN CELL HGB CONCETRATION (test 29.5 G/DL 31.5-34.0 L code = MCHC) RED CELL DISTRIBUTION WIDTH (test 16.1 SD 11.5-14.5 H code = RDW) PLATELET COUNT (test code = PLT) 198.0 K/mm3 150-450 N MEAN PLATELET VOLUME (test code = 10.20 fL 7.0-10.5 N MPV) NEUTROPHIL % (test code = NT%) 78.9 % 40-76 H LYMPHOCYTE % (test code = LY%) 17.9 % 20.5-51.1 L MONOCYTE % (test code = MO%) 3.0 % 1.7-9.3 N EOSINOPHIL % (test code = EO%) 0.0 % 0.0-6.0 N BASOPHIL % (test code = BA%) 0.2 % 0.0-2.0 N NEUTROPHIL # (test code = NT#) 4.66 K/mm3 1.8-7.6 N LYMPHOCYTE # (test code = LY#) 1.1 K/mm3 0.6-3.2 N MONOCYTE # (test code = MO#) 0.2 K/mm3 0.3-1.1 L EOSINOPHIL # (test code = EO#) 0.0 K/mm3 0.0-0.4 N BASOPHIL # (test code = BA#) 0.0 K/mm3 0.0-0.1 N MANUAL DIFF REQUIRED (test code = NO DIFF/SCN CRITERIA MDIFF) Novel Coronavirus [id number] 00:04:00 Test Item Value Reference Range Interpretation Comments Novel Coronavirus Negative Negative Positive r esults are 2019 Inhouse (test indicativ e of the presence code = [id number]) ofSARS-CoV -2 RNA, clinical correlation wit h patient historyand othe r diagnostic info rmation is necessary to determinepatien t infection status. Positiv e results do not rule out bacterial infection or co -infection with other viru ses. Negative result s do not preclude SARS-C oV-2 infection andsh ould not be used as the demarco e basis for patient managementdecis ions. Negative result s must be combined with otherclinical observations, p atient history, and epidemiological information . Detection of SARS-CoV-2 RNA may be affe cted bysample collec tion methods, storag e conditions, and /or stageof infection. Marnie l RNA mutations, vacc inations, antiviraltherap eutics, antibiotics, chemotherapeuti c orimmunosuppres naresh drugs have not been e valuated for effectson d etection. Results are for the identification of SARS-CoV-2 RNA usingthe [employer] M2000 Sy stem under the [facility] Emergen cy UseAuthorizatio n. The testing is perf ormed by personneltraine d in the procedures for the [employer] M2000 molecular diagnostic SARS-CoV-2 assa y in vitro. Testing Criteria: Cough Shortness of BreathNovel Coronavirus 2019 2020-02-19 00:04:00 Test Item Value Reference Range Interpretation Comments Novel Coronavirus Negative Negative Positive r esults are 2019 Inhouse (test indicativ e of the presence code = [id number]) ofSARS-CoV -2 RNA, clinical correlation wit h patient historyand othe r diagnostic info rmation is necessary to determinepatien t infection status. Positiv e results do not rule out bacterial infection or co -infection with other viru ses. Negative result s do not preclude SARS-C oV-2 infection andsh ould not be used as the demarco e basis for patient managementdecis ions. Negative result s must be combined with otherclinical observations, p atient history, and epidemiological information . Detection of SARS-CoV-2 RNA may be affe cted bysample collec tion methods, storag e conditions, and /or stageof infection. Marnie l RNA mutations, vacc inations, antiviraltherap eutics, antibiotics, chemotherapeuti c orimmunosuppres naresh drugs have not been e valuated for effectson d etection. Results are for the identification of SARS-CoV-2 RNA usingthe [employer] M2000 Sy stem under the FDA Emergen cy UseAuthorizatio n. The testing is perf ormed by personneltraine d in the procedures for the [employer] M2000 molecular diagnostic SARS-CoV-2 assa y in vitro. Testing Criteria: Cough Shortness of BreathCBC W/AUTO [id number] 06:45:00 Test Item Value Reference Range Interpretation Comments WHITE BLOOD CELL (test code = 7.6 K/mm3 3.5-11.0 N WBC) RED BLOOD CELL (test code = RBC) 3.78 M/mm3 4.70-6.10 L HEMOGLOBIN (test code = HGB) 10.3 G/DL 10.4-14.9 L HEMATOCRIT (test code = HCT) 34.7 % 31.5-44.1 N MEAN CELL VOLUME (test code = 91.8 Fl 84.5-98.6 N MCV) MEAN CELL HGB (test code = MCH) 27.2 pg 27.0-34.2 N MEAN CELL HGB CONCETRATION (test 29.7 G/DL 31.5-34.0 L code = MCHC) RED CELL DISTRIBUTION WIDTH (test 16.4 SD 11.5-14.5 H code = RDW) PLATELET COUNT (test code = PLT) 207.0 K/mm3 150-450 N MEAN PLATELET VOLUME (test code = 10.50 fL 7.0-10.5 N MPV) NEUTROPHIL % (test code = NT%) 81.2 % 40-76 H LYMPHOCYTE % (test code = LY%) 13.1 % 20.5-51.1 L MONOCYTE % (test code = MO%) 5.6 % 1.7-9.3 N EOSINOPHIL % (test code = EO%) 0.0 % 0.0-6.0 N BASOPHIL % (test code = BA%) 0.1 % 0.0-2.0 N NEUTROPHIL # (test code = NT#) 6.14 K/mm3 1.8-7.6 N LYMPHOCYTE # (test code = LY#) 1.0 K/mm3 0.6-3.2 N MONOCYTE # (test code = MO#) 0.4 K/mm3 0.3-1.1 N EOSINOPHIL # (test code = EO#) 0.0 K/mm3 0.0-0.4 N BASOPHIL # (test code = BA#) 0.0 K/mm3 0.0-0.1 N MANUAL DIFF REQUIRED (test code = NO DIFF/SCN CRITERIA MDIFF) BASIC METABOLIC [id number] 06:22:00 Test Item Value Reference Range Interpretation Comments SODIUM (test code = NA) 141 mmol/L 134-147 N POTASSIUM (test code = 4.0 mmol/L 3.4-5.0 N K) CHLORIDE (test code = 105 mmol/L 100-108 N CL) CARBON DIOXIDE (test 28 mmol/L 21-32 N code = CO2) ANION GAP (test code = 8.0 GAP calc 4.0-15.0 N GAP) GLUCOSE (test code = 121 MG/DL 70-110 H GLU) BLOOD UREA NITROGEN 14 MG/DL 7-18 N (test code = BUN) GLOMERULAR FILTRATION >=60 max estimate >60 RATE (test code = GFR) estGFR CREATININE (test code = 0.7 MG/DL 0.6-1.0 N CREAT) CALCIUM (test code = CA) 8.6 MG/DL 8.5-10.1 N GLUCOSE BEDSIDE [id number] 19:46:00 Test Item Value Reference Range Interpretation Comments GLUCOSE BEDSIDE TESTING (test code 160 mg/dL 70-110 H = GLUBED) - CT CHEST W/O [id number] 16:49:00 Name: THEO CARMONA [place] : 1960 Age/S: 59 / F [id number] [place] Unit #: [id number] Loc: [place] [address] Phys: Andres Escalante MD Acct: [id number] Dis Date: Status: ADM IN PHONE #: [phone] Exam Date: 02/17/2020 1637 FAX #: Reason: pna EXAMS: CPT: [id number] CT CHEST W/O CONTRAST [id number] Examination: CT scan chest without contrast. Location code: 60. TECHNIQUE: Multiple axial images of the chest were obtained without intravenous administration of contrast with sa gittal and coronal reconstructions. CT examination was performed using automated dose reduction. Discussion: Clinical history is significant for asthma. Given the lack of intravenous contrast and limitations of the study secondary to lack of intravenous contrast no enlarged mediastinal, hilar or axillary lymphadenopathy is identified. Postsurgicalchanges are identified in the upper abdomen. Lungs are clear of consolidating infiltrates. No masses, nodules or effusions identified. IMPRESSION: 1.Normal CT scan of chest. at 1649 Reported and signed by: Bill William M.D. CC: Kane Singletary MD; Andres Escalante MD Technologist:Stacy Peterson, RT(R) CTDI: DLP: Trnscb Date/Time: 02/17/2020 (1649) [email or web address] Orig Print D/T: S: 02/17/2020 (0087) PAGE 1 Signed ReportGLUCOSE BEDSIDE [id number] 16:37:00 Test Item Value Reference Range Interpretation Comments GLUCOSE BEDSIDE TESTING (test code 135 mg/dL 70-110 H = GLUBED) GLUCOSE BEDSIDE [id number] 11:56:00 Test Item Value Reference Range Interpretation Comments GLUCOSE BEDSIDE TESTING (test code 179 mg/dL 70-110 H = GLUBED) GLUCOSE BEDSIDE [id number] 08:27:00 Test Item Value Reference Range Interpretation Comments GLUCOSE BEDSIDE TESTING (test code 121 mg/dL 70-110 H = GLUBED) CBC W/AUTO [id number] 00:05:00 Test Item Value Reference Range Interpretation Comments WHITE BLOOD CELL (test 4.6 K/mm3 3.5-11.0 N code = WBC) RED BLOOD CELL (test 3.88 M/mm3 4.70-6.10 L code = RBC) HEMOGLOBIN (test code 10.7 G/DL 10.4-14.9 N = HGB) HEMATOCRIT (test code 35.3 % 31.5-44.1 N = HCT) MEAN CELL VOLUME (test 91.0 Fl 84.5-98.6 N code = MCV) MEAN CELL HGB (test 27.6 pg 27.0-34.2 N code = MCH) MEAN CELL HGB 30.3 G/DL 31.5-34.0 L CONCETRATION (test code = MCHC) RED CELL DISTRIBUTION 16.1 SD 11.5-14.5 H WIDTH (test code = RDW) PLATELET COUNT (test 191.0 K/mm3 150-450 N code = PLT) MEAN PLATELET VOLUME 10.40 fL 7.0-10.5 N (test code = MPV) NEUTROPHIL % (test 87.6 % 40-76 H code = NT%) LYMPHOCYTE % (test 11.1 % 20.5-51.1 L code = LY%) MONOCYTE % (test code 0.7 % 1.7-9.3 L = MO%) EOSINOPHIL % (test 0.4 % 0.0-6.0 N code = EO%) BASOPHIL % (test code 0.2 % 0.0-2.0 N = BA%) NEUTROPHIL # (test 4.04 K/mm3 1.8-7.6 N code = NT#) LYMPHOCYTE # (test 0.5 K/mm3 0.6-3.2 L code = LY#) MONOCYTE # (test code 0.0 K/mm3 0.3-1.1 L = MO#) EOSINOPHIL # (test 0.0 K/mm3 0.0-0.4 N code = EO#) BASOPHIL # (test code 0.0 K/mm3 0.0-0.1 N = BA#) MANUAL DIFF REQUIRED NO DIFF/SCN CRITERIA SLIDE R MINNA (test code = MDIFF) CONSISTA NT WITH AUTO DIFFERENTIAL. COMPREHENSIVE METABOLIC [id number] 23:52:00 Test Item Value Reference Range Interpretation Comments SODIUM (test code = NA) 136 mmol/L 134-147 N POTASSIUM (test code = 4.5 mmol/L 3.4-5.0 N K) CHLORIDE (test code = 106 mmol/L 100-108 N CL) CARBON DIOXIDE (test 24 mmol/L 21-32 N code = CO2) ANION GAP (test code = 6.0 GAP calc 4.0-15.0 N GAP) GLUCOSE (test code = 175 MG/DL 70-110 H GLU) BLOOD UREA NITROGEN 18 MG/DL 7-18 N (test code = BUN) GLOMERULAR FILTRATION >=60 max estimate >60 RATE (test code = GFR) estGFR CREATININE (test code = 0.9 MG/DL 0.6-1.0 N CREAT) TOTAL PROTEIN (test code 7.0 G/DL 6.4-8.2 N = PROT) ALBUMIN (test code = 3.2 G/DL 3.4-5.0 L ALB) GLOBULIN (test code = 3.8 GM/dL GLOB) ALBUMIN/GLOBULIN RATIO 0.8 RATIO 1.2-2.2 L (test code = A/G) CALCIUM (test code = CA) 8.5 MG/DL 8.5-10.1 N BILIRUBIN TOTAL (test 0.30 MG/DL 0.2-1.2 N code = BILT) SGOT/AST (test code = 18 Unit/L 15-37 N AST) SGPT/ALT (test code = 18 Unit/L 12-78 N ALT) ALKALINE PHOSPHATASE 97 Unit/L 45-117 N TOTAL (test code = ALKP) RULE OUT MA [id number] 23:52:00 Test Item Value Reference Range Interpretation Comments CREATINE KINASE 62 Unit/L 26-192 N (CK) (test code = CK) TROPONIN-I (test < 0.015 NG/ML 0.000-0.045 N Negative: </= 0.045 code = TROPI) Positive: >/= 0.046 Correlation wit h serial results, other cardiac markers , and clinical findin gs is necessary to de termine the clinical significance of this result. Quantit ative results using different methodologies s hould not be compared to one another as nume rical results may leidy yby method. COMPREHENSIVE METABOLIC [id number] 23:43:00 Test Item Value Reference Range Interpretation Comments SODIUM (test code = NA) 136 mmol/L 134-147 N POTASSIUM (test code = K) 4.5 mmol/L 3.4-5.0 N CHLORIDE (test code = CL) 106 mmol/L 100-108 N CARBON DIOXIDE (test code = CO2) 24 mmol/L 21-32 N ANION GAP (test code = GAP) 6.0 GAP calc 4.0-15.0 N GLUCOSE (test code = GLU) 175 MG/DL 70-110 H BLOOD UREA NITROGEN (test code = 18 MG/DL 7-18 N BUN) GLOMERULAR FILTRATION RATE (test estGFR >60 code = GFR) CREATININE (test code = CREAT) MG/DL 0.6-1.0 TOTAL PROTEIN (test code = PROT) G/DL 6.4-8.2 ALBUMIN (test code = ALB) G/DL 3.4-5.0 GLOBULIN (test code = GLOB) GM/dL ALBUMIN/GLOBULIN RATIO (test RATIO 1.2-2.2 code = A/G) CALCIUM (test code = CA) 8.5 MG/DL 8.5-10.1 N BILIRUBIN TOTAL (test code = MG/DL 0.2-1.2 BILT) SGOT/AST (test code = AST) Unit/L 15-37 SGPT/ALT (test code = ALT) Unit/L 12-78 ALKALINE PHOSPHATASE TOTAL (test Unit/L 45-117 code = ALKP) RULE OUT MA [id number] 23:43:00 Test Item Value Reference Range Interpretation Comments CREATINE KINASE (CK) (test code = CK) Unit/L 26-192 TROPONIN-I (test code = TROPI) NG/ML 0.000-0.045 B-TYPE NATRIURETIC [id number] 14:56:00 Test Item Value Reference Range Interpretation Comments B-TYPE NATRIURETIC PEPTIDE (test 22.8 pg/mL 0-100 N code = BNP) BASIC METABOLIC [id number] 14:55:00 Test Item Value Reference Range Interpretation Comments SODIUM (test code = 143 mmol/L 128-145 N NA) POTASSIUM (test code 3.5 mmol/L 3.5-5.1 N = K) CHLORIDE (test code = 106.0 mmol/L 98-107 N CL) CARBON DIOXIDE (test 29.9 mmol/L 22-29 H code = CO2) ANION GAP (test code 11 mmol/L 10-20 N = GAP) GLUCOSE (test code = 88 mg/dL 70-110 N GLU) BLOOD UREA NITROGEN 9 mg/dL 7-22 N (test code = BUN) GLOMERULAR FILTRATION > 60 mL/min >=60 Estima sekou GFR by RATE (test code = using Ohllis fied MDRD GFR) formula.Chronic kidney disease is defined as [facility] kidney damageor GFR <60 mL/min/1.73 m2 for >3 months. CREATININE (test code 0.66 mg/dL 0.55-1.3 N = CREAT) BUN/CREATININE RATIO 13.6 10-20 N (test code = BUN/CREA) CALCIUM (test code = 8.8 mg/dL 8.0-10.5 N CA) [id number] 14:55:00 Test Item Value Reference Range Interpretation Comments TROPONIN-I (test code = TROPI) 0.03 ng/mL 0.00-0.056 N BASIC METABOLIC [id number] 14:48:00 Test Item Value Reference Range Interpretation Comments SODIUM (test code = 143 mmol/L 128-145 N NA) POTASSIUM (test code 3.5 mmol/L 3.5-5.1 N = K) CHLORIDE (test code = 106.0 mmol/L 98-107 N CL) CARBON DIOXIDE (test 29.9 mmol/L 22-29 H code = CO2) ANION GAP (test code 11 mmol/L 10-20 N = GAP) GLUCOSE (test code = 88 mg/dL 70-110 N GLU) BLOOD UREA NITROGEN 9 mg/dL 7-22 N (test code = BUN) GLOMERULAR FILTRATION > 60 mL/min >=60 Estima sekou GFR by RATE (test code = using Hollis fied MDRD GFR) formula.Chronic kidney disease is defined as [facility] kidney damageor GFR <60 mL/min/1.73 m2 for >3 months. CREATININE (test code 0.66 mg/dL 0.55-1.3 N = CREAT) BUN/CREATININE RATIO 13.6 10-20 N (test code = BUN/CREA) CALCIUM (test code = 8.8 mg/dL 8.0-10.5 N CA) [id number] 14:48:00 Test Item Value Reference Range Interpretation Comments TROPONIN-I (test code = TROPI) ng/mL 0-0.045 - XR CHEST 1 [id number] 14:48:00 FAX: Travis Wood [phone] [place]: [place] St: REG Name: THEO CARMONA [facility] FSED : 1960 Age/S: 58/F [address] [facility] Unit#: [id number] Loc: [facility] B Phys: Travis Wood MD [place], [place] [address] Acct: [id number] Dis Date: Status: REG ER PHONE #: Exam Date: 01/18/2019 1436 FAX #: Reason: Shortness of Breath EXAMS: CPT CODE: [id number] XR CHEST 1 V [id number] REASON FOR EXAM: Shortness of Breath EXAM ORDER DATE: 01/18/2019 2:14 PM Ordering Kyle: Travis Wood MD PROCEDURE: - XR CHEST 1 V COMPARISON: FINDINGS: Portable AP frontal view of the chest obtained at 2:33 PM shows clear lungs without evidence of consolidation. There is no evidence of effusion. The heart size is within normal limits. Pulmonary vasculatur es are unremarkable. IMPRESSION: No active disease. at 0801 Reported and signed by: Artem Maldonado M.D. CC: Travis Wood MD Technologist: Isaías Fisher Trnscrd Date/Time/By: 01/18/2019 ([id number]) : By: NimcoVTL OrigPrint D/T: S: 01/18/2019 (4162) PAGE 1 Signed ReportCBC W/O [id number] 14:42:00 Test Item Value Reference Range Interpretation Comments WHITE BLOOD CELL (test code = 3.5 K/mm3 4.5-12.5 L WBC) RED BLOOD CELL (test code = 4.17 mill/mm3 3.7-5.2 N RBC) HEMOGLOBIN (test code = HGB) 11.5 gram/dL 11.5-15.5 N HEMATOCRIT (test code = HCT) 37.2 % 36.0-46.0 N MEAN CELL VOLUME (test code = 89.2 fL 80-98 N MCV) MEAN CELL HGB (test code = MCH) 27.6 picogram 27.0-33.0 N MEAN CELL HGB CONCETRATION 30.9 gram/dL 33.0-36.0 L (test code = MCHC) RED CELL DISTRIBUTION WIDTH 15.1 % 11.6-16.2 N (test code = RDW) RED CELL DISTRIBUTION WIDTH SD 48.9 fL 37.0-51.0 N (test code = RDW-SD) PLATELET COUNT (test code = 129 K/mm3 150-450 L PLT) MEAN PLATELET VOLUME (test code 9.9 fL 6.7-11.0 N = MPV)
[2021-02-15 11:57] LABS: Absolute Lymphocytes (CBC) 1.7 K/uL (0.7-4.9); Hematocrit 39.6 % (36.0-45.0); Lymphocytes % 26.5 % (15.3-44.8); MPV 8.2 fL (7.6-11.3); RBC Red Blood Cell Count 4.65 M/uL (3.86-4.86)
[2021-02-15] MEDS ORDERED: LEVALBUTEROL 1.25 MG/3 ML NEB ONE (12:01)
[2021-02-15] MEDS ORDERED: METHYLPREDNISOLONE 125 MG INJ ONE (12:12)
[2021-02-15 12:13] LABS: Potassium 3.6 mmol/L (3.5-5.1)
--- NOTE | 2021-02-15 12:14 | RAD REPORT ---
EXAM DESCRIPTION: RAD - Chest Single View - 02/15/2021 12:01 pm CLINICAL HISTORY: Cough;Congestion Chest pain. COMPARISON: Chest Single View dated 06/06/2019; Chest Pa And Lat (2 Views) dated 11/05/2016; Chest Pa A nd Lat (2 Views) dated 11/04/2016; Chest Single View dated 11/03/2016 FINDINGS: Portable technique limits examination quality. Mild interstitial lung opacities are present most compatible with viral infection or atypical pneumon ia. The heart is normal in size. No displaced fractures.
[2021-02-15] MEDS ORDERED: ONDANSETRON 4 MG/2 ML VIAL ONE (12:22)
[2021-02-15 13:24] LABS: Blood Morphology Comment NOT SEEN (NOT SEEN); Platelet Estimate ADEQ; White Blood Cell Scan OK (OK)
[2021-02-15] MEDS ORDERED: NA CHLORIDE 0.9% 50 ML ONE (15:47)
[2021-02-15] MEDS ORDERED: CEFTRIAXONE 1000 MG/VIAL ONE (15:47)
--- NOTE | 2021-02-15 16:28 | RAD REPORT ---
EXAM DESCRIPTION: CT - Chest For Pe Angio - 02/15/2021 4:19 pm CLINICAL HISTORY: Chest pain. Cough;Congestion COMPARISON: CTANGIO CHEST FOR PE dated 09/09/2015 TECHNIQUE: CT angiogram of the pulmonary arteries was performed with MIP. All CT scans are performed using dose optimization technique as appropriate and may include automated exposure control or mA/KV adjustment according to patient size. FINDINGS: No evidence of pulmonary thromboembolism. There are mild areas of ground-glass and interstitial lung opacity present probably representing atyp ical infection or small airway inflammation. The lungs are clear. No significant pericardial or pleural fluid. No concerning bony finding. IMPRESSION: No evidence of pulmonary thromboembolism. Mild ground-glass opacities as detailed above. Atypical infection or small airway inflammation are po ssibilities.
--- NOTE | 2021-02-15 16:42 | ER ---
Nurse's Notes [facility] Name: Rissa Collazo Age: 60 yrs Sex: Female : 1960 Arrival Date: 02/15/2021 Time: 11:16 Bed 19 Private MD: Diagnosis: Acute upper respiratory infection, unspecified;Viral infection, unspecified Presentation: 02/15 11:16 Chief complaint: Patient states: HX of asthma, productive cough and Difficulty of ca1 breathing x 2 weeks. albuterol breathing treatment 3 - 4x this morning since 0500, no relief. EMS gave Ipratropium breathing treatment on scene. Initial SPO2 upon arrival on scene 97%, increased to 99% after breathing treatment. Denies fever. Coronavirus screen: Client denies travel out of the [place] in the last 14 days. cough unrelated to allergies, difficulty breathing, Client presents with at least one sign or symptom that may indicate coronavirus-19. Standard/surgical mask placed on the client. Provider contacted for isolation considerations. Ebola Screen: Patient negative for fever greater than or equal to 101.5 degrees Fahrenheit, and additional compatible Ebola Virus Disease symptoms Patient denies exposure to infectious person. Patient denies travel to an Ebola-affected area in the 21 days before illness onset. No symptoms or risks identified at this time. Initial Sepsis Screen: Does the patient meet any 2 criteria? No. Patient's initial sepsis screen is negative. Does the patient have a suspected source of infection? No. Patient's initial sepsis screen is negative. Risk Assessment: Do you want to hurt yourself or someone else? Patient reports no desire to harm self or others. Onset of symptoms was February 15, 2021. 11:16 Acuity: HOLLI 3 ca1 11:16 Method Of Arrival: EMS: [facility] ca1 Triage Assessment: 11:26 General: Appears in no apparent distress. uncomfortable, Behavior is anxious. Pain: ca1 Denies pain. Neuro: Level of Consciousness is awake, alert, obeys commands, Oriented to person, place, time, situation. Cardiovascular: Heart tones S1 S2 present Capillary refill < 3 seconds Patient's skin is warm and dry. Rhythm is sinus tachycardia. Respiratory: Reports shortness of breath at rest since 2 weeks [employer], worse since 0500 this morning cough that is productive, since 2 weeks [employer] Breath sounds with wheezes bilaterally. Onset: The symptoms/episode began/occurred gradually, the patient has mild shortness of breath. GI: Abdomen is round non-distended, Bowel sounds present X 4 quads. Abd is soft and non tender X 4 quads. : No signs and/or symptoms were reported regarding the genitourinary system. Derm: Skin is intact, is healthy with good turgor, Skin is pink, warm \T\ dry. Musculoskeletal: Circulation, motion, and sensation intact. Capillary refill < 3 seconds. Historical: - Allergies: : No Known Allergies; ca1 - Home Meds: : Depakote ER 1250 mg Oral 1 tab nightly [Active]; bupropion HCl 150 mg Oral cpER 1 tab ca1 once daily [Active]; duloxetine 60 mg Oral cpDR 1 cap once daily [Active]; lorazepam 1 mg Oral tab 1 tab as needed [Active]; Ambien 10 mg Oral tab 1 tab as needed [Active]; Bystolic 5 mg oral tab 1 tab once daily [Active]; losartan 100 mg Oral tab 1 tab once daily [Active]; pantoprazole 40 mg Oral TbEC 1 tab once daily [Active]; montelukast 10 mg Oral tab 1 tab once daily [Active]; Claritin 10 mg Oral tab 1 tab once daily [Active]; ProAir HFA 90 mcg/actuation inhalation HFAA [Active]; trelegy inhaler [Active]; Xopenex Nebulizer [Active]; - PMHx: 11: Asthma; COPD; andrade's esophogous; Hypertension; ca1 - PSHx: 11: Gastric Bypass; Hysterectomy; ca1 - Immunization history:: Adult Immunizations up to date, Client reports receiving the 2nd dose of the Covid vaccine, Client reports receiving the 1st dose of the Covid vaccine, Flu vaccine is up to date. - Social history:: Smoking status: Patient denies any tobacco usage or history of. Screenin:30 Abuse screen: Denies threats or abuse. Denies injuries from another. Nutritional ca1 screening: No deficits noted. Tuberculosis screening: No symptoms or risk factors identified. Fall Risk IV access (20 points). Assessment: 11:30 Reassessment: see triage notes. Cardiovascular: Heart tones S1 S2 present Capillary ca1 refill < 3 seconds Patient's skin is warm and dry. Rhythm is sinus tachycardia. 11:31 Respiratory: Airway is patent Respiratory effort is even, unlabored. ca1 15:41 Reassessment: Walked patient around unit on RA. Pt and tolerated well with 02 98% on RA kg and pulse was in the 120s. . Vital Signs: 11:16 BP 143 / 85; Pulse 114; Resp 20; Temp 97.3(O); Pulse Ox 97% on R/A; Weight 94.35 kg ca1 (R); Height 5 ft. 6 in. (167.64 cm) (R); Pain 0/10; 12:00 BP 119 / 74; Pulse 111; Resp 20; Pulse Ox 99% on Nebulizer Mask; kg 13:00 BP 126 / 79; Pulse 92; Resp 20; Pulse Ox 92% ; kg 14:00 BP 97 / 50; Pulse 99; Resp 20; Pulse Ox 91% ; kg 15:43 BP 129 / 83; Pulse 97; Resp 20; Pulse Ox 95% on R/A; kg 17:00 BP 149 / 56; Pulse 83; Resp 20; Pulse Ox 93% on R/A; kg 11:16 Body Mass Index 33.57 (94.35 kg, 167.64 cm) ca1 ED Course: 11:16 Patient arrived in ED. ca1 11:21 Triage completed. ca1 11:26 Arm band placed on right wrist. ca1 11:28 Carmine Thomas MD is Attending Physician. kdr 11:30 Jayne Gallegos RN is Primary Nurse. ca1 11:30 Patient has correct armband on for positive identification. Placed in gown. Bed in low ca1 position. Call light in reach. Side rails up X2. engine monitor on. Pulse ox on. NIBP on. Warm blanket given. 11:50 Initial lab(s) drawn, by ne, sent to lab. Inserted saline lock: 22 gauge in right ca1 wrist, using aseptic technique. Blood collected. 12:02 CXR XRAY In Process Unspecified. EDMS 16:20 CT Chest For PE Angio In Process Unspecified. EDMS 17:43 No provider procedures requiring assistance completed. IV discontinued, intact, kg bleeding controlled, No redness/swelling at site. Pressure dressing applied. Administered Medications: 11:47 Drug: Xopenex (levalbuterol) (3) 1.25 mg Route: Inhalation; ca1 11:55 Drug: SOLU-Medrol (methylPrednisoLONE) 125 mg Route: IVP; Site: right antecubital; kg 15:18 Follow up: Response: No adverse reaction; Marked relief of symptoms kg 12:05 Drug: Zofran (Ondansetron) 4 mg Route: IVP; Site: right forearm; hb 15:18 Follow up: Response: No adverse reaction kg 15:34 Drug: Rocephin - (cefTRIAXone) 1 grams Route: IVPB; Infused Over: 30 mins; Site: right kg wrist; 16:00 Follow up: Response: No adverse reaction; IV Status: Completed infusion; IV Intake: 50mlkg 16:07 Follow up: Response: No adverse reaction; Marked relief of symptoms kg Intake: 16:00 IV: 50ml; Total: 50ml. kg Outcome: 16:42 Discharge ordered by . kdr 17:55 Discharged to home ambulatory. kg 17:55 Condition: improved 17:55 Discharge instructions given to patient, Instructed on discharge instructions, follow up and referral plans. Demonstrated understanding of instructions, follow-up care, medications, Prescriptions given X 4. 18:24 Patient left the ED. kg Signatures: Dispatcher [employer] EDMS Carmine Thomsa MD MD kdr Baxter, Heather, RN RN Jayne Woodson RN RN ca1 Graham, Kristen kg
--- NOTE | 2021-02-15 16:42 | EDPHYS ---
Physician Documentation [facility] Name: Rissa Collazo Age: 60 yrs Sex: Female : 1960 Arrival Date: 02/15/2021 Time: 11:16 Bed 19 Private MD: ED Physician Carmine Thomas HPI: 02/15 16:56 This 60 yrs old Female presents to ER via EMS with complaints of Breathing kdr Difficulty. 16:56 The patient has shortness of breath at rest, with light activity, while talking. Onset: kdr The symptoms/episode began/occurred gradually, 2 week(s) ago. Duration: The symptoms are continuous, and are steadily getting worse. The patient's shortness of breath is aggravated by coughing, exertion, light activity, is alleviated by nebulizer treatment, rest. Associated signs and symptoms: The patient has no apparent associated signs or symptoms. Severity of symptoms: At their worst the symptoms were mild moderate just prior to arrival, in the emergency department the symptoms are unchanged. The patient has experienced similar episodes in the past, a few times. The patient has not recently seen a physician. Historical: - Allergies: : No Known Allergies; ca1 - Home Meds: : Depakote ER 1250 mg Oral 1 tab nightly [Active]; bupropion HCl 150 mg Oral cpER 1 tab ca1 once daily [Active]; duloxetine 60 mg Oral cpDR 1 cap once daily [Active]; lorazepam 1 mg Oral tab 1 tab as needed [Active]; Ambien 10 mg Oral tab 1 tab as needed [Active]; Bystolic 5 mg oral tab 1 tab once daily [Active]; losartan 100 mg Oral tab 1 tab once daily [Active]; pantoprazole 40 mg Oral TbEC 1 tab once daily [Active]; montelukast 10 mg Oral tab 1 tab once daily [Active]; Claritin 10 mg Oral tab 1 tab once daily [Active]; ProAir HFA 90 mcg/actuation inhalation HFAA [Active]; trelegy inhaler [Active]; Xopenex Nebulizer [Active]; - PMHx: 11: Asthma; COPD; andrade's esophogous; Hypertension; ca1 - PSHx: 11: Gastric Bypass; Hysterectomy; ca1 - Immunization history:: Adult Immunizations up to date, Client reports receiving the 2nd dose of the Covid vaccine, Client reports receiving the 1st dose of the Covid vaccine, Flu vaccine is up to date. - Social history:: Smoking status: Patient denies any tobacco usage or history of. ROS: 16:56 Constitutional: Negative for fever, chills, and weight loss, Eyes: Negative for injury, kdr pain, redness, and discharge, ENT: Negative for injury, pain, and discharge, Neck: Negative for injury, pain, and swelling, Cardiovascular: Negative for chest pain, palpitations, and edema, Abdomen/GI: Negative for abdominal pain, nausea, vomiting, diarrhea, and constipation, Back: Negative for injury and pain, : Negative for injury, bleeding, discharge, and swelling, MS/Extremity: Negative for injury and deformity, Skin: Negative for injury, rash, and discoloration, Neuro: Negative for headache, weakness, numbness, tingling, and seizure activity. Psych: Negative for depression, anxiety, suicide ideation, homicidal ideation, and hallucinations, Allergy/Immunology: Negative for hives, rash, and allergies, Endocrine: Negative for neck swelling, polydipsia, polyuria, polyphagia, and marked weight changes, Hematologic/Lymphatic: Negative for swollen nodes, abnormal bleeding, and unusual bruising. 16:56 Respiratory: Positive for cough, "sounds productive", dyspnea on exertion, shortness of breath, wheezing, Negative for hemoptysis, orthopnea, pleurisy. Exam: 16:56 Constitutional: This is a well developed, well nourished patient who is awake, alert, kdr and in no acute distress. Head/Face: Normocephalic, atraumatic. Eyes: Pupils equal round and reactive to light, extra-ocular motions intact. Lids and lashes normal. Conjunctiva and sclera are non-icteric and not injected. Cornea within normal limits. Periorbital areas with no swelling, redness, or edema. Neck: Trachea midline, no thyromegaly or masses palpated, and no cervical lymphadenopathy. Supple, full range of motion without nuchal rigidity, or vertebral point tenderness. No Meningismus. Chest/axilla: Normal chest wall appearance and motion. Nontender with no deformity. No lesions are appreciated. Cardiovascular: Regular rate and rhythm with a normal S1 and S2. No gallops, murmurs, or rubs. Normal PMI, no JVD. No pulse deficits. Abdomen/GI: Soft, non-tender, with normal bowel sounds. No distension or tympany. No guarding or rebound. No evidence of tenderness throughout. Back: No spinal tenderness. No costovertebral tenderness. Full range of motion. Skin: Warm, dry with normal turgor. Normal color with no rashes, no lesions, and no evidence of cellulitis. MS/ Extremity: Pulses equal, no cyanosis. Neurovascular intact. Full, normal range of motion. Neuro: Awake and alert, GCS 15, oriented to person, place, time, and situation. Cranial nerves II-XII grossly intact. Motor strength 5/5 in all extremities. Sensory grossly intact. Cerebellar exam normal. Normal gait. Psych: Awake, alert, with orientation to person, place and time. Behavior, mood, and affect are within normal limits. 16:56 Respiratory: the patient does not display signs of respiratory distress, Respirations: normal, shallow respirations, that is mild, Breath sounds: wheezing: that is mild, bilateral bases very minor and scattered. Vital Signs: 11:16 BP 143 / 85; Pulse 114; Resp 20; Temp 97.3(O); Pulse Ox 97% on R/A; Weight 94.35 kg ca1 (R); Height 5 ft. 6 in. (167.64 cm) (R); Pain 0/10; 12:00 BP 119 / 74; Pulse 111; Resp 20; Pulse Ox 99% on Nebulizer Mask; kg 13:00 BP 126 / 79; Pulse 92; Resp 20; Pulse Ox 92% ; kg 14:00 BP 97 / 50; Pulse 99; Resp 20; Pulse Ox 91% ; kg 15:43 BP 129 / 83; Pulse 97; Resp 20; Pulse Ox 95% on R/A; kg 17:00 BP 149 / 56; Pulse 83; Resp 20; Pulse Ox 93% on R/A; kg 11:16 Body Mass Index 33.57 (94.35 kg, 167.64 cm) ca1 MDM: 16:42 Patient medically screened. kdr 16:56 Data reviewed: vital signs, nurses notes, lab test result(s), radiologic studies. kdr Counseling: I had a detailed discussion with the patient and/or guardian regarding: the historical points, exam findings, and any diagnostic results supporting the discharge/admit diagnosis, lab results, radiology results, the need for outpatient follow up. 02/15 11:45 Order name: CBC with Diff; Complete Time: 15:06 kdr 02/15 11:45 Order name: Chem 7; Complete Time: 15:06 kdr 02/15 11:45 Order name: CXR XRAY; Complete Time: 15:06 kdr 02/15 12:03 Order name: CBC Smear Scan; Complete Time: 15:06 EDMS 02/15 14:14 Order name: SARS-COV-2 RT PCR; Complete Time: 15:06 EDMS 02/15 15:16 Order name: Misc. Order: Ambulate pt and record change in VS if any; Complete Time: kdr 15:19 02/15 15:45 Order name: CT Chest For PE Angio; Complete Time: 16:40 kdr Administered Medications: 11:47 Drug: Xopenex (levalbuterol) (3) 1.25 mg Route: Inhalation; ca1 11:55 Drug: SOLU-Medrol (methylPrednisoLONE) 125 mg Route: IVP; Site: right antecubital; kg 15:18 Follow up: Response: No adverse reaction; Marked relief of symptoms kg 12:05 Drug: Zofran (Ondansetron) 4 mg Route: IVP; Site: right forearm; hb 15:18 Follow up: Response: No adverse reaction kg 15:34 Drug: Rocephin - (cefTRIAXone) 1 grams Route: IVPB; Infused Over: 30 mins; Site: right kg wrist; 16:00 Follow up: Response: No adverse reaction; IV Status: Completed infusion; IV Intake: 50mlkg 16:07 Follow up: Response: No adverse reaction; Marked relief of symptoms kg Disposition: 02/15/21 16:42 Discharged to Home. Impression: Acute upper respiratory infection, unspecified, Viral infection, unspecified. - Condition is Stable. - Discharge Instructions: Upper Respiratory Infection, Adult, Viral Respiratory Infection, [id number]. - Prescriptions for Zyrtec 10 mg Oral Tablet - take 1 tablet by ORAL route once daily As needed; 20 tablet. Tessalon Perles 100 mg Oral Capsule - take 1 capsule by ORAL route every 8 hours As needed; 20 capsule. Zithromax Z- Jaleel 250 mg Oral Tablet - take 1 tablet by ORAL route as directed for 5 days Day 1 - take two (2) tablets one time. Day 2, 3, 4 , 5 take one (1) tablet once daily.; 6 tablet. Medrol (Jaleel) 4 mg Oral Tablets, Dose Pack - take 1 tablet by ORAL route as directed - follow package instructions; 1 packet. - Medication Reconciliation Form, Thank You Letter, Antibiotic Education form. - Follow up: Private Physician; When: 2 - 3 days; Reason: If symptoms return, Further diagnostic work-up, Recheck today's complaints, Continuance of care, Re-evaluation by your physician. - Problem is an ongoing problem. - Symptoms have improved. Signatures: Dispatcher [employer] EDMS Carmine Thomas MD MD kdr Radha Joshi RN RN Jayne Gallegos RN RN ca1 Shahnaz Díaz kg Corrections: (The following items were deleted from the chart) 18:24 16:42 02/15/2021 16:42 Discharged to Home. Impression: Acute upper respiratory kg infection, unspecified; Viral infection, unspecified. Condition is Stable. Forms are Medication Reconciliation Form, Thank You Letter, Antibiotic Education, Prescription Opioid Use. Follow up: Private Physician; When: 2 - 3 days; Reason: If symptoms return, Further diagnostic work-up, Recheck today's complaints, Continuance of care, Re-evaluation by your physician. Problem is an ongoing problem. Symptoms have improved. kdr
[2021-02-15 18:36] VITALS: TEMP 97.3
[2021-02-15 18:43] VITALS: BP 149/56; O2SAT 93
== END 2021-02-15 18:24 | disposition home or self-care (01) ==
LOC: ER 11:10
DX: J06.9 Acute upper respiratory infection, unspecified (principal); B34.9 Viral infection, unspecified; Z20.822 Contact with and (suspected) exposure to COVID-19; Z98.84 Bariatric surgery status; J44.9 Chronic obstructive pulmonary disease, unspecified; I10 Essential (primary) hypertension; K22.70 Barrett's esophagus without dysplasia
CPT/HCPCS: 85025; 80048; 36415; 71275; 71045; 99285; U0003; Q9967; J2930; J2405